=== PATIENT | female | born 1970 | race Caucasian/White ===

== ENCOUNTER 2020-06-30 07:47 | Day surgery (SDC) | payer OTHER ==
[~2020-06-30 07:47] MED LIST: Midazolam 1 MG/ML 2 ML SDV ONE; Propofol 200 MG/20 ML SDV ONE; fentaNYL 100 MCG/2 ML SDV ONE
[2020-06-30] MEDS ORDERED: Sodium Chloride 0.9% 1,000 ML IV SCH (08:15)
[2020-06-30] MEDS ORDERED: Propofol 200 MG/20 ML SDV ONE (09:22)
--- NOTE | 2020-06-30 10:48 | OR ---
DATE OF PROCEDURE: 06/30/2020 SURGEON: Adam Chavira MD PROCEDURE: 1. Esophagogastroduodenoscopy. 2. Colonoscopy. FINDINGS/PATHOLOGY: 1. Small white plaque-like lesions in duodenum (biopsied using cold biopsy forceps). 2. Inflammation in the GE junction concerning for reflux disease (biopsied in all 4 quadrants multiple times). 3. Ascending colon polypoid-like lesion, approximately 5 mm, completely removed using cold biopsy forceps. 4. Prominent internal hemorrhoid in a symptomatic patient with GI bleeding. RISKS: Risks, benefits, alternatives, and limitations including but not limited to infection, bleeding, perforation, and false positives and false negatives were explained to the patient who wished to proceed. PROCEDURE IN DETAIL: The patient was placed in left lateral decubitus position. The EGD scope was introduced and advanced atraumatically to the second part of the duodenum. Within the duodenum itself, there were a small white plaque-like lesions not consistent with papilla. These were unable to be removed and were integrated into the tissue. A few of these were biopsied using cold biopsy forceps. There was no bleeding or significant inflammation associated with this. Within the stomach itself, there was no gastritis, no ulceration. The patient was noted to have a very small hiatal hernia. At the GE junction, she had inflammation concerning for reflux disease. This was biopsied multiple times in all 4 quadrants. These were benign-appearing inflammatory areas approximately extending 1 cm to 2 cm above the GE junction. Digital rectal exam was performed. Next, the scope was introduced and advanced atraumatically to ileocecal valve. A photo was taken of this. In direct proximity to the ileocecal valve and ascending colon, a small polypoid-like lesion was noted. This appeared to be benign. This was biopsied using cold biopsy forceps. The scope was brought back to the remainder of the colon. No other polyps were noted. No old or new blood. No colitis. On retroflexion, the patient had a prominent internal hemorrhoid, which she had complained of preoperatively, and was bleeding and protruding intermittently. This was readily identified and subsequently banded. No abnormal bleeding was noted after removal. The patient tolerated the procedure well. Adam Chavira MD /[id number]
== END 2020-06-30 10:50 | disposition home or self-care (01) ==
LOC: JP.SDS 07:47
PROVIDERS: ATTEND Surgery
DX: Z12.11 Encounter for screening for malignant neoplasm of colon (principal); D12.2 Benign neoplasm of ascending colon; K20.90 Esophagitis, unspecified without bleeding; K44.9 Diaphragmatic hernia without obstruction or gangrene; K64.8 Other hemorrhoids; I10 Essential (primary) hypertension; E66.9 Obesity, unspecified; Z68.41 Body mass index [BMI] 40.0-44.9, adult; Z88.6 Allergy status to analgesic agent; Z88.8 Allergy status to other drugs, medicaments and biological substances; Z91.040 Latex allergy status
CPT/HCPCS: 43239; 45380; J2250; J2704; J3010; J7030